=== PATIENT | female | born 1970 | race Caucasian/White ===

== ENCOUNTER → 2019-05-26 15:20 | Outpatient (BNVA) | payer OTHER, SELFPAY | PROVIDERS: Family Provider Nurse Practitioner; PCP Nurse Practitioner; Visit Provider Nurse Practitioner Women's Health | DX: Z01.419 Encounter for gynecological examination (general) (routine) without abnormal findings (principal); N95.1 Menopausal and female climacteric states; N94.10 Unspecified dyspareunia | CPT/HCPCS: 88175 ==

== ENCOUNTER → 2019-07-17 16:06 | Outpatient (BNVA) | payer OTHER, SELFPAY | PROVIDERS: Family Provider Nurse Practitioner; PCP Nurse Practitioner; Visit Provider Obstetrics & Gynecology | DX: N94.10 Unspecified dyspareunia (principal) | CPT/HCPCS: 76830 ==

== ENCOUNTER → 2019-07-21 08:50 | Outpatient (BNVA) | payer OTHER, SELFPAY | PROVIDERS: Family Provider Nurse Practitioner; PCP Nurse Practitioner; Visit Provider Nurse Practitioner Women's Health | DX: N94.10 Unspecified dyspareunia (principal); N95.0 Postmenopausal bleeding | CPT/HCPCS: 88305 ==

== ENCOUNTER → 2020-07-02 12:04 | Outpatient (BNVA) | payer OTHER, SELFPAY | PROVIDERS: Family Provider Nurse Practitioner; PCP Nurse Practitioner; Visit Provider Urology | DX: L65.9 Nonscarring hair loss, unspecified (principal) | CPT/HCPCS: 84439; 84443 ==

== ENCOUNTER 2020-08-09 14:07 | Outpatient (CLI) | payer OTHER, SELFPAY ==
--- NOTE | 2020-08-09 14:30 | MM_ITS ---
WS: [id number] BILATERAL SCREENING MAMMOGRAM WITH JER DISPLACEMENT VIEWS. CAD PERFORMED. HISTORY: Z12.39 - Encounter for other screening for malignant neoplasm of breast COMPARISON: 03/12/2017 and 06/15/2014 Bilateral craniocaudal and mediolateral like views are performed. Jer displacement views in CC and MLO projection also performed. Breasts composition: There are scattered areas of fibroglandular density. Implants are intact. No suspicious mass or calcification. There are a few scattered calcifications wi thin each breast. MM/[id number] IMPRESSION: BI-RADS: 2-Benign FOLLOW-UP: 1 Year Follow-up
== END 2020-08-09 14:08 | disposition home or self-care (01) ==
LOC: RADSHAW 14:10
PROVIDERS: Visit Provider Nurse Practitioner Women's Health
DX: Z12.31 Encounter for screening mammogram for malignant neoplasm of breast (principal)
CPT/HCPCS: 77067

== ENCOUNTER 2022-06-05 12:10 | Outpatient (CLI) | payer OTHER, SELFPAY ==
--- NOTE | 2022-06-05 12:46 | MM_ITS ---
WS: [id number] BILATERAL SCREENING DIGITAL BREAST MAMMOGRAPHY WITH JER DISPLACEMENT VIEWS. CAD PERFORMED. HISTORY: SCREEN COMPARISON: 08/09/2020 and 03/12/2017 Bilateral craniocaudal and mediolateral oblique views are performed with tomosynthesis and SM. Jer displacement views in CC and MLO projection also performed. Breasts composition: There are scattered areas of fibroglandular density. Prepectoral implants are intact. No capsular contraction. No collapse. No suspicious calcifications. MM/[id number] IMPRESSION: BI-RADS: 2-Benign FOLLOW-UP: 1 Year Follow-up
== END 2022-06-05 12:11 | disposition home or self-care (01) ==
LOC: RAD 12:16
PROVIDERS: PCP Family Medicine; Visit Provider Family Medicine
DX: Z12.31 Encounter for screening mammogram for malignant neoplasm of breast (principal)
CPT/HCPCS: 77063; 77067

== ENCOUNTER → 2023-11-05 15:00 | Outpatient (BNVA) | payer OTHER, SELFPAY | PROVIDERS: PCP Family Medicine; Visit Provider Nurse Practitioner Women's Health | DX: Z01.419 Encounter for gynecological examination (general) (routine) without abnormal findings (principal) | CPT/HCPCS: 87624 ==

== ENCOUNTER 2023-12-03 11:29 | Outpatient (CLI) | payer OTHER, SELFPAY ==
--- NOTE | 2023-12-03 14:30 | MM_ITS ---
WS: [id number] BILATERAL SCREENING DIGITAL BREAST MAMMOGRAPHY WITH JER DISPLACEMENT VIEWS. CAD PERFORMED. HISTORY: Z12.31 - Encounter for screening mammogram for malignant ... COMPARISON: 06/05/2022, 08/09/2020 Bilateral craniocaudal and mediolateral oblique views are performed with tomosynthesis and SM. Jer displacement views in CC and MLO projection also performed. Breasts composition: The breasts are almost entirely fatty. No suspicious mass or distortion. There are a few scattered benign calcifications. Prepectoral implan ts are intact. MM/MM scr tomosynthesis [id number] IMPRESSION: BI-RADS: 2 - Benign. FOLLOW-UP: 1 Year Follow-up
== END 2023-12-03 11:30 | disposition home or self-care (01) ==
LOC: RAD 11:31
PROVIDERS: PCP Family Medicine; Visit Provider Nurse Practitioner Women's Health
DX: Z12.31 Encounter for screening mammogram for malignant neoplasm of breast (principal); R92.1 Mammographic calcification found on diagnostic imaging of breast; Z98.82 Breast implant status
CPT/HCPCS: 77063; 77067